=== PATIENT | male | born 1995 | race Caucasian/White ===

== ENCOUNTER 2023-04-29 20:15 | Emergency (ER) | payer MEDICAID ==
[~2023-04-29] VITALS: Ht 182.9 cm; Wt 70.3 kg
[2023-04-29 20:19] VITALS: BP 125/86
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
[2023-04-29] MEDS ORDERED: LIDOCAINE MPF 1% 10 MG/ML VIAL INJ ONE (20:35)
[2023-04-29] MEDS ORDERED: IBUPROFEN 600 MG TAB PO ONE (20:35)
--- NOTE | 2023-04-29 20:35 | NUR ---
girlfriend is at the bedside
[2023-04-29] MEDS ORDERED: BACITRACIN OINT 500 UNITS/GM PKT TP ONE (22:03)
[2023-04-29] MEDS ORDERED: BACI-416 TP (22:05)
--- NOTE | 2023-04-29 22:15 | NUR ---
Patient discharged with v/s stable. Written and verbal after care instructions given and explained. Patient verbalized understanding. Ambulatory with steady gait. All questions addressed prior to discharge. Advised to follow up with PMD.
== END 2023-04-29 22:15 | disposition home or self-care (01) ==
LOC: MED 20:15
DX: S61.211A Laceration without foreign body of left index finger without damage to nail, initial encounter (principal); R03.0 Elevated blood-pressure reading, without diagnosis of hypertension; Z79.899 Other long term (current) drug therapy; W45.8XXA Other foreign body or object entering through skin, initial encounter; Y93.89 Activity, other specified; Y92.89 Other specified places as the place of occurrence of the external cause; Y99.8 Other external cause status
CPT/HCPCS: 12001; 90471; 90715; 99283; J2001